=== PATIENT | female | born 1980 | race African-American/Black ===

== ENCOUNTER 2024-12-18 14:05 | Emergency (ER) | payer MEDICAID ==
[~2024-12-18] VITALS: Ht 170.2 cm; Wt 95.0 kg
[2024-12-18 14:33] VITALS: TEMP 98
[2024-12-18 14:56] LABS: PLATELET COUNT (AUTO) 210 K/uL (150-450); RED BLOOD CELL COUNT(AUTO) 3.87 MIL/uL (4.00-5.20); RED CELL DISTRIBUTION WIDTH 13.1 % (11.5-14.5); WHITE BLOOD COUNT (AUTO) 6.2 K/uL (4.5-11.0)
[2024-12-18 15:05] LABS: CALCIUM, TOTAL 8.7 mg/dL (8.8-10.5); CREATININE 0.66 mg/dL (0.60-1.30); GLOMERULAR FILTR. RATE CALC > 60 mL/min (>60); GLUCOSE,RANDOM 113 mg/dL (70-110); SODIUM SERUM 136 mmol/L (136-145); UREA NITROGEN, BLOOD 7 mg/dL (7-18)
[2024-12-18] MEDS: ACETAMINOPHEN 500 MG TABLET PO ONE (15:21)
[2024-12-18] MEDS: PYRIDOXINE HCL 50 MG TABLET PO ONE (15:21)
[2024-12-18] MEDS: DOXYLAMINE SUCCINATE 25 MG TABLET PO ONE (15:28)
[2024-12-18 15:35] LABS: ASPARTATE AMINOTRANSFERASE 16.0 U/L (15-37); HCG,QUANTITATIVE 155287.0 mIU/mL (0-6); TOTAL PROTEIN, SERUM 7.0 g/dL (6.4-8.2)
[2024-12-18] MEDS: POTASSIUM CHLORIDE 20 MEQ ER TABLET PO ONE (15:54)
[2024-12-18 18:58] LABS: APPEARANCE,URINE CLEAR (CLEAR); GLUCOSE, URINE (UA) NEGATIVE (NEGATIVE); LEUKOCYTE ESTERASE ,URINE NEGATIVE (NEGATIVE); NITRATE,URINE NEGATIVE (NEGATIVE); OCCULT BLOOD,URINE NEGATIVE (NEGATIVE); SPECIFIC GRAVITIY, URINE 1.006 (1.003-1.030)
[2024-12-18 19:24] VITALS: BP 135/77; PULSE 80; RESP 16; O2SAT 100
== END 2024-12-18 19:36 | disposition home or self-care (01) ==
LOC: EMS 14:05 → EDBD 14:05 → EMS 19:36
DX: O20.9 Hemorrhage in early pregnancy, unspecified (principal); N89.8 Other specified noninflammatory disorders of vagina; Z3A.11 11 weeks gestation of pregnancy
CPT/HCPCS: 76801; 80048; 80076; 81003; 83690; 84702; 85025; 99284